=== PATIENT | male | born 1980 | race Caucasian/White ===

== ENCOUNTER 2021-11-22 07:47 | Outpatient (CLI) | payer OTHER, SELFPAY ==
--- NOTE | 2021-11-22 08:00 | ECG_ITS ---
Measurements Intervals [place] Rate: 81 P: 60 [place]: 135 QRS: 40 QRSD: 107 T: 57 QT: 367 QTc: 428 Interpretive Statements SINUS RHYTHM BASELINE ARTIFACT- I, II, III, AVR, AVL, AVF NORMAL ECG Electronically Signed On 11-22-2021 9:59:44 [employer] BACK [employer]ER by Evin Segal D.O.
== END 2021-11-22 07:48 | disposition home or self-care (01) ==
LOC: ANHSURGERY 07:51
PROVIDERS: PCP Nurse Practitioner Adult Health; Visit Provider Surgery
DX: Z01.812 Encounter for preprocedural laboratory examination (principal); E78.5 Hyperlipidemia, unspecified
CPT/HCPCS: 93005

== ENCOUNTER 2021-11-27 00:34 | Day surgery (SDC) | payer OTHER, SELFPAY ==
[2021-11-15 14:43] VITALS: BMI 27.8
--- NOTE | 2021-11-15 15:00 | PC.NURSE ---
Report to the Outpatient Waiting Room, entrance under the green pavilion located off [facility], at time 10:00 on date 11/27/21. OR Time: 12:00. - You and your visitor will be asked a series of questions to screen for COVID 19 for your protection. - A mask is required within the hospital. - Only one visitor is allowed at this time. Patient visitors will be guided where to wait when not with patient. Preoperative COVID Testing Requirements: No COVID Test needed if: (proof is required; if not received patient will have Rapid Test prior to entry) - Patient has received COVID Vaccine at least 14 days prior to procedure date or - Patient has positive COVID test result within last 90 days of surgery date. COVID Test needed if above criteria is not met If not COVID vaccinated a COVID test must be conducted within 72 hours of surgery and patient is asked to isolate self from time of testing until procedure. You will go to the [facility] for your COVID testing. The [facility] is located at the corner of [address] [facility]. You will only be called if COVID results are positive and your surgeon may reschedule your elective surgery date. Patients may have clear liquids (water, carbonated beverages, clear teas, apple juice) until 3 hours prior to surgery with a maximum of 20 ounces. - No food from midnight until time of surgery - Infants may have breast milk until 4 hours before surgery, infant formula 6 hours prior to surgery. - Children will be allowed to drink immediately following surgery. If applicable, please bring a bottle or sippy cup to assist with drinking. Juice, water, soda, and popsicles are readily available. For infants on formula, please bring formula the day of surgery. Pacifiers are allowed. Take the following medications with a SIP of water the morning of surgery: NONE Medications to discontinue per physician: VITAMINS/SUPPLEMENTS Date to take last dose: 11/23/21 Please no make-up, nail ukrainian, hairspray, perfume, deodorant, or body powder the day of surgery. No jewelry (including any body piercings) or valuables the day of surgery, leave them at home. Please take a shower or bath the night before, or the morning of, surgery with an antibacterial soap. Wear comfortable, loose fitting clothing. HIBICLENS SHOWER - Jewelry must be removed prior to entering the operating room. Rings and piercings that are not removed may be cut off. - The hospital will not accept responsibility for valuables. - Please leave all valuables, including medications, at home the day of surgery. If you are going home after surgery, a licensed tank driver must drive you home. - NO public transportation without another adult. - We recommend that an adult stay with you for 24 hours following discharge. - We also recommend that you do not drive, make important decision, drink alcoholic beverages, or take any drugs that were not prescribed by your health care provider for at least 24 hours after your discharge time. For Pediatric surgeries, we recommend two adults accompany the child home (only one inside the building at this time). Follow any additional instructions given to you from your surgeon. Telephone instructions given to MARIANN MILLER and asked if any additional questions and then verbalized understanding. Patient advised to call surgeon office or pre surgery nurse liaison [phone] if any additional questions.
[2021-11-27] VITALS (8 sets, daily range): BP systolic 106–123; BP diastolic 62–88; PULSE 61–97; RESP 12–16; TEMP 36.7–36.8; O2SAT 97–100
[2021-11-27] MEDS: ACETAMINOPHEN 500 MG TABLET 1000 MG PO (07:43)
[2021-11-27] MEDS: KETOROLAC 15 MG/ML VIAL (*BKC) IV PUSH (07:43)
--- NOTE | 2021-11-27 07:52 | WPDANESEPPF ---
Anes - Initial Pre Proc Eval Procedure: Operation Date: 11/27/21 08:30 Proposed Procedures p Umbilical Hernia Repair with Possible Mesh - Javier Powell DO Date/Time: 11/27/21 07:52 Surgeon: Javier Powell DO Pre Op Diagnosis: Umbilical Hernia Patient Data Age: 41 Gender: M Height: 1.8 m Weight: 90.72 kg Last Vital Signs Temp 36.8 C 11/27/21 07:34 Pulse 70 11/27/21 07:34 Resp 16 11/27/21 07:34 BP 123/73 11/27/21 07:34 Pulse Ox 99 11/27/21 07:34 Allergies Allergy/AdvReac Type Severity Reaction Status Date / Time No Known Allergies Allergy Unknown Verified 11/15/21 14:41 Home Medications Medication Instructions Recorded Confirmed Type fenofibrate 160 mg tablet 160 mg PO DAILY 08/23/21 11/15/21 History calcium-vitamins B6-B12-FA 1 tablet PO DAILY 11/15/21 11/15/21 History cholecalciferol (vitamin D3) 25 mcg PO DAILY 11/15/21 11/15/21 History [Vitamin D3] Patient hx anesthesia problems: none Family hx anesthesia problems: none Results Review: All pre-operative results and documents have been reviewed as part of the pre-operative evaluation. [facility] Past Medical History Medical History High cholesterol Surgical History Surgical History History of laparoscopic appendectomy 1988 History of rotator cuff surgery Right shoulder 2014 Family History Family History Sibling Family history of diabetes mellitus in first degree relative Other Diabetes mellitus Family history of cardiovascular disease Family history of lung cancer Family history of throat cancer Social History Social History Smoking packs per day: 2 Smoking cigarettes per day: 40.0 Years smoked: 20 Smoking pack-years: 40.00 Smoking status: Former smoker Tobacco type: cigarettes Smoking end date: 11/24/14 Alcohol intake: current Alcohol use details: 3/MONTH Substance use: never Substance use type: does not use Living arrangements: with family 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 Informed Consent: The patient's anesthetic plan and its attendant risks and benefits were discussed with the patient/family/POA. Questions were solicited and answers provided to the satisfaction of the patient/family/POA.
[2021-11-27] MEDS: LACTATED RINGERS 1,000 ML 30 ML IV CONT ×2 (08:00→09:32)
--- NOTE | 2021-11-27 08:26 | WPDHPUPDATE1 ---
History and Physical Update Update Date/Time: 11/27/21 08:26 History and Physical has been reviewed, including an updated exam of the patient. There are NO changes in the patient's condition. Risks, benefits, and alternatives have been discussed and questions answered. Patient agrees to proceed with procedure.
--- NOTE | 2021-11-27 08:27 | PM.IMHP ---
H&P: HPI History of Present Illness Date/Time: 11/27/21 08:27 Chief Complaint: umbilical hernia Narrative: 41 yo man presents for umbilical hernia repair. He denies any changes since last seen in office. Review of Systems Review of Systems: All systems reviewed & are unremarkable except as noted in HPI and below Constitutional: Constitutional: Denies chills, Denies fever(s), Denies headache(s) and Denies weight loss Eyes: Eyes: Denies change in vision ENT: Denies dizziness, Denies headache(s), Denies neck mass and Denies throat swelling Cardiovascular: Cardiovascular: Denies chest pain, Denies lightheadedness and Denies dyspnea Respiratory: Respiratory: Denies cough, Denies dyspnea and Denies wheezing Gastrointestinal: Gastrointestinal: Denies abdominal pain, Denies change in bowel habits, Denies nausea and Denies vomiting Genitourinary: Genitourinary: Denies hematuria and Denies dysuria Musculoskeletal: Musculoskeletal: Reports as per HPI Integumentary/Breasts: Skin/Breast: Reports as per HPI Neurologic: Denies dizziness and Denies headache(s) Allergic/Immunologic: Allergic/Immunologic: Denies throat swelling and Denies wheezing PMFSH Past Medical History Medical History High cholesterol Surgical History Surgical History History of laparoscopic appendectomy 1988 History of rotator cuff surgery Right shoulder 2015 Family History Family History Sibling Family history of diabetes mellitus in first degree relative Other Diabetes mellitus Family history of cardiovascular disease Family history of lung cancer Family history of throat cancer Social History Social History Smoking packs per day: 2 Smoking cigarettes per day: 40.0 Years smoked: 20 Smoking pack-years: 40.00 Smoking status: Former smoker Tobacco type: cigarettes Smoking end date: 11/24/14 Alcohol intake: current Alcohol use details: 3/MONTH Substance use: never Substance use type: does not use Living arrangements: with family 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 Spiritual care concerns: No Meds Home Medications and Allergies Home Medications Medication Instructions Recorded Confirmed Type fenofibrate 160 mg tablet 160 mg PO DAILY 08/23/21 11/15/21 History calcium-vitamins B6-B12-FA 1 tablet PO DAILY 11/15/21 11/15/21 History cholecalciferol (vitamin D3) 25 mcg PO DAILY 11/15/21 11/15/21 History [Vitamin D3] Allergies Allergy/AdvReac Type Severity Reaction Status Date / Time No Known Allergies Allergy Unknown Verified 11/15/21 14:41 Vital Signs Vital Signs - 24 hr 11/27/21 07:34 Temperature 36.8 C Pulse Rate 70 Respiratory Rate 16 Blood Pressure 123/73 Pulse Oximetry 99 Exam Const: General: no acute distress and alert Orientation/consciousness: patient oriented x3 HENMT: Head: normocephalic and atraumatic Ears: hearing grossly normal bilaterally General nose exam: Normal nares present Mouth: Yes Normal oral and palatal mucosa present Eyes: Periorbital: periorbital findings normal Sclera: sclerae normal EOM: EOMs intact bilaterally Neck: Neck: normal visual inspection, no lymphadenopathy and trachea midline Chest: Chest palpation & inspection: normal inspection of the chest Resp: Effort & Inspection: normal respiratory effort Auscultation: clear to auscultation bilaterally Cardio: Jugular venous distension: no JVD Rate: regular rate Rhythm: regular rhythm Heart sounds: S1 normal heart sound present and S2 normal heart sound present Peripheral pulses: Peripheral pulses 2+ throughout GI: Inspection: normal to inspection GI Palp: Yes Soft to palpation, No Tenderness to palpation present (
[2021-11-27] MEDS: ceFAZolin 2 GM/D5W 50 ML 2 GM/50 ML BAG IVPB (08:34)
[2021-11-27] MEDS: BUPIVACAINE/EPINEPHRINE 0.25% 10 ML VIAL 30 ML INFILTRATE (09:02)
--- NOTE | 2021-11-27 09:30 | P.OP_ITS ---
Procedure Note - Detailed Date of Procedure 11/27/21 Pre-op Diagnosis Ventral periumbilical hernia Post-op Diagnosis same Procedure Performed Open ventral hernia repair with 6.[address] ventral patch Surgeon Javier Powell, DO Anesthesia general and local (0.5% bupivacaine with epinephrine) Indications This is a 41-year-old man who presents with a painful bulge near his umbilicus. This has been present for several months and has become progressively larger. He has pain with physical activity. He was found to have a reducible hernia located near the umbilicus on exam. Discussions were made with the patient about treatment options and decision was made to proceed with ventral hernia repair with possible mesh. Findings Ventral hernia repair was performed. The patient was found to have a 1.5 cm hernia located just superior to the umbilicus. There was not much preperitoneal fat around the hernia, therefore decision was made to place the Ventralex ST mesh intra-abdominally and secure this to the fascia with 0 Ethibond U-stitch trans fascial sutures. No specimens were obtained for pathology. Description of Procedure Procedure as well as risks, benefits, and alternatives were discussed with the patient. Written consent was obtained and placed in chart prior to procedure. Patient was brought back to surgical suite. He was placed supine on operating table. He was then intubated by Anesthesia Department. His abdomen was prepped and draped in sterile fashion using chlorhexidine prep. 0.5% bupivacaine with epinephrine was infiltrated locally around the operative area. A 4 cm cu rvilinear incision was made just superior to the umbilicus using a 15 blade scalpel. Electrocautery was used for hemostasis and for dissection down through the subcutaneous fat. Hernia sac was encountered and this was carefully freed up from surrounding subcutaneous fat using electrocautery. The hernia sac was freed up all the way down to the level of the fascia, and then it was transected using electrocautery. The hernia sac excised and discarded. The umbilical stalk was then lifted off of the fascia with electrocautery. The hernia defect was then measured. This was measuring approximately 15 mm. The decision was made to use a 6.[address] ventral patch. The mesh was placed within the abdominal cavity and was laid out flat with it centered on the hernia defect. The straps of the mesh were then secured to the fascia using 0 Ethibond U-stitch trans fascial sutures at the superior and inferior edges. The straps were then cut just beyond the suture. The fascia of the hernia defect was then reapproximated over the mesh using 0 Ethibond [id number] sutures. The repair was inspected and appeared secure. 0.5% bupivacaine with epinephrine was infiltrated around the fascia and subcutaneous space. The umbilical stalk was then reapproximated to the fascia using a 3 0 Vicryl simple interrupted suture. The deep dermis was reapproximated using 3 0 Vicryl simple interrupted sutures, and then the skin was approximated using 4 Monocryl running subcuticular suture. Exofin glue was then applied on top. The patient was then awakened from anesthesia, extubated, and transferred to recovery. Implants 6.[address] mesh Estimated Blood Loss 5 Complications No immediate complications Condition stable Disposition same day
== END 2021-11-27 11:40 | disposition home or self-care (01) ==
PROVIDERS: PCP Nurse Practitioner Adult Health; Visit Provider Surgery
PROC: (CPT 49560; principal; 2021-11-27 08:30)
DX: K43.9 Ventral hernia without obstruction or gangrene (principal); E78.00 Pure hypercholesterolemia, unspecified; Z87.891 Personal history of nicotine dependence
CPT/HCPCS: 49560; 49568; 93005; A9270; J0690; J1100; J1885; J2250; J2405; J2704; J3010; J7120

== ENCOUNTER 2022-10-08 17:34 | Emergency (ER) | payer OTHER, SELFPAY ==
[2022-10-08] VITALS (16 sets, daily range): BP systolic 105–139; BP diastolic 72–100; PULSE 57–80; RESP 12–23; TEMP 36.8; O2SAT 96–100
--- NOTE | ~2022-10-08 | XR_ITS ---
EXAMINATION: XR chest 2V DATE: 10/08/2022 18:06 INDICATION: Chest pain TECHNIQUE: Frontal and lateral views of the chest are obtained COMPARISON: 02/27/2012 FINDINGS: The lungs are free of acute opacities. No pleural effusion or pneumothorax. The cardiomedia stinal silhouette is normal. The visualized bones and soft tissues are unremarkable. IMPRESSION: 1. No acute cardiopulmonary abnormality. Reviewed, dictated and finalized at location F. ER OPERATOR
--- NOTE | 2022-10-08 17:47 | ECG_ITS ---
Measurements Intervals [place] Rate: 64 P: 52 [place]: 170 QRS: 48 QRSD: 102 T: 60 QT: 393 QTc: 408 Interpretive Statements SINUS RHYTHM BASELINE ARTIFACT- I, II, AVR, AVL NORMAL ECG COMPARED TO ECG 11/22/2021 08:10:36 NO SIGNIFICANT CHANGES Electronically Signed On 10-08-2022 19:54:27 ROOFER by Evin Segal D.O.
[2022-10-08 20:49] LABS: Basophils Absolute Auto 0.1 K/mm3 (0.0-0.1); Basophils Percent Auto 0.7 % (0.2-1.2); Eosinophils Absolute Auto 0.1 K/mm3 (0-0.3); Eosinophils Percent Auto 1.2 % (0-4.4); Hematocrit 42.7 % (42.0-52.0); Hemoglobin 15.1 g/dL (14.0-18.0); Immature Granulocyte Absolute 0.03 K/mm3 (0.00-0.031); Immature Granulocyte Percent A 0.4 % (0-0.5); Lymphocytes Absolute Auto 2.38 K/mm3 (0.9-3.2); Lymphocytes Percent Auto 31.2 % (18.3-44.2); Mean Corpuscular HGB Conc 35.4 g/dl (32-36); Mean Corpuscular Hemoglobin 31.4 pg (26-34); Mean Corpuscular Volume 88.8 fl (80-100); Mean Platelet Volume 10.7 fl (7.4-10.4); Monocytes Absolute Auto 0.6 K/mm3 (0.1-0.6); Monocytes Percent Auto 8.4 % (2.6-8.5); Neutrophils Absolute Auto 4.4 K/mm3 (1.3-6.7); Neutrophils Percent Auto 58.1 % (45.5-73.1); Platelet Count Result 282 k/mm3 (150-375); Red Blood Count 4.81 M/mm3 (4.6-6.20); Red Cell Distribution Width 12.7 % (11.5-14.5); White Blood Count 7.6 K/mm3 (4.5-10.0)
--- NOTE | 2022-10-08 20:56 | ED.GENADULT ---
HPI - General Adult General Chief complaint: Chest Pain Stated complaint: chest pain since yesterday Time Seen by Provider: 10/08/22 20:46 History of Present Illness HPI narrative: Patient 42-year-old gentleman who presents emergency department with chief complaint of chest pain. Patient states that he has been having discomfort since yesterday reports its been pretty well constant but has slightly improved today. Patient states the pain is not worse with inspiration reports that he is had no nausea vomiting Diaphoresis denies radiation to the arm or neck. The patient states he has significant family history for cardiac disease but he personally has no significant past medical history. The patient denies smoking. Related Data Home Medications Medication Instructions Recorded Confirmed fenofibrate 160 mg tablet 160 mg PO DAILY 08/23/21 01/18/22 calcium-vitamins B6-B12-FA tablet 1 tablet PO DAILY 11/15/21 01/18/22 cholecalciferol (vitamin D3) 25 25 mcg PO DAILY 11/15/21 01/18/22 mcg (1,000 unit) tablet (Vitamin D3) Allergies Allergy/AdvReac Type Severity Reaction Status Date / Time No Known Allergies Allergy Unknown Verified 01/15/22 09:00 Review of Systems Review of Systems: A 10 system review of systems was completed on the patient and is negative except for what is stated in the HPI. Nursing and ancillary documentation was reviewed. [facility] Past Medical History Medical History High cholesterol Surgical History Surgical History H/O umbilical hernia repair 11/27/21 History of laparoscopic appendectomy 1988 History of rotator cuff surgery Right shoulder 2014 Family History Family History Sibling Family history of diabetes mellitus in first degree relative Other Diabetes mellitus Family history of cardiovascular disease Family history of lung cancer Family history of throat cancer Social History Social History Smoking packs per day: 2 Smoking cigarettes per day: 40.0 Years smoked: 20 Smoking pack-years: 40.00 Smoking status: Former smoker Tobacco type: cigarettes Smoking end date: 11/24/14 Alcohol intake: current Alcohol use details: 3/MONTH Substance use: never Substance use type: does not use 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 HEAD: Normocephalic, atraumatic. EYES: PERRLA and EOMI. ENT: Nares clear, no rhinorrhea or epistaxis. Mucous membranes moist. NECK: Supple. CHEST: Clear to auscultation. No respiratory distress. HEART: Regular rate and rhythm. No murmur heard. Normal peripheral pulses. ABDOMEN: Soft, nontender, nondistended, normal active bowel sounds. EXTREMITIES: Normal range of motion. No edema. SKIN: Warm, dry, no rash. NEURO: No focal deficits. Alert and oriented x3. PSYCH: Normal mood and affect. Course Course Emergency Course: EKG is sinus rhythm rate of [address] elevation or ST depression Vital Signs Vital signs: Vital Signs Temperature 36.8 C 10/08/22 17:43 Pulse Rate 74 10/08/22 17:43 Respiratory Rate 12 10/08/22 17:43 Blood Pressure 131/87 10/08/22 17:43 Pulse Oximetry 100 10/08/22 17:43 Oxygen Delivery Room Air 10/08/22 17:43 Temperature 36.8 C 10/08/22 17:43 Pulse Rate 59 L 10/09/22 00:27 Respiratory Rate 11 L 10/09/22 00:27 Blood Pressure 116/76 10/09/22 00:27 Pulse Oximetry 100 10/09/22 00:27 Oxygen Delivery Room Air 10/08/22 17:43 Medical Decision Making Vital Signs Vital Signs: Vital Signs Temperature 36.8 C 10/08/22 17:43 Pulse Rate 74 10/08/22 17:43 Respiratory
[2022-10-08 21:00] LABS: INR 1.1; Prothrombin Time 13.8 Seconds (11.1-14.7)
[2022-10-08 21:01] LABS: Partial Thromboplastin Time 29.5 SECONDS (22.3-36.8)
[2022-10-08 21:09] LABS: Alanine Aminotransferase 30 U/L (6-50); Albumin Level 5.1 g/dL (3.5-5.1); Alkaline Phosphatase 69 U/L (38-126); Anion Gap 13 mmol/L (8-16); Aspartate Amino Transferase 27 U/L (17-59); Blood Urea Nitrogen 16 mg/dL (9-20); Calcium 9.7 mg/dL (8.4-10.2); Carbon Dioxide 25 mmol/L (22-30); Chloride 102 mmol/L (98-107); Estimated CRCL calculation 91 ml/min; Estimated Glomerular Filt Rate > 60; Glucose 84 mg/dL (65-110); Lipase 70 U/L (23-300); Potassium 4.2 mmol/L (3.4-5.0); Sodium 140 mmol/L (137-145)
[2022-10-08 21:20] LABS: Troponin I < 0.012 ng/mL (0.000-0.034)
[2022-10-08] MEDS: ASPIRIN 81 MG CHEWABLE TABLET 324 MG PO (21:34)
[2022-10-09] VITALS: PULSE 56; RESP 19; O2SAT 98
[2022-10-09 00:05] LABS: Troponin I < 0.012 ng/mL (0.000-0.034)
[2022-10-09 00:15] VITALS: PULSE 59; RESP 18; O2SAT 97
[2022-10-09 00:27] VITALS: BP 116/76; PULSE 59; RESP 11; O2SAT 100
== END 2022-10-09 00:30 | disposition home or self-care (01) ==
PROVIDERS: Nurse Practitioner Family; Emergency Provider Emergency Medicine
DX: R07.89 Other chest pain (principal); E78.00 Pure hypercholesterolemia, unspecified; Z87.891 Personal history of nicotine dependence
CPT/HCPCS: 36415; 71046; 80053; 83690; 84484; 85025; 85610; 85730; 93005; 99284; A9270

== ENCOUNTER 2023-10-05 10:39 | Emergency (ER) | payer OTHER, SELFPAY ==
--- NOTE | ~2023-10-05 | XR_ITS ---
EXAMINATION: XR foot RT min 3V DATE: 10/05/2023 11:04 INDICATION: Right foot injury. TECHNIQUE: 5 views of right foot were obtained. COMPARISON: None. FINDINGS: Bone alignment is normal. There is a nondisplaced oblique fracture of base of fourth metata rsal. There is mild osteoarthritis of first metatarsophalangeal joint. IMPRESSION: 1. Nondisplaced oblique fracture of base of fourth metatarsal. 2. Mild osteoarthritis of first metatarsophalangeal joint. Reviewed, dictated and finalized at location A. ATION RESEARCH ANALYST
[2023-10-05 10:50] VITALS: BP 144/98; PULSE 75; RESP 16; TEMP 37.2; O2SAT 100
--- NOTE | 2023-10-05 11:36 | ED.GENADULT ---
HPI - General Adult General Chief complaint: Extremity Injury, Lower Stated complaint: Fall Source: patient Mode of arrival: ambulatory Limitations: no limitations History of Present Illness HPI narrative: Patient presents for evaluation of right foot pain. He was walking down a hill in his yard last night when he stepped in a hole. He twisted his right ankle and fell down. He did not hit his head. No LOC. He now reports pain in the right foot. At rest his pain is 2/10 in severity but it increases to 8/10 with weightbearing and movement. He took some ibuprofen which seemed to help. He has tingling in his toes. No numbness. No loss of ROM. Related Data Home Medications Medication Instructions Recorded Confirmed atorvastatin 40 mg tablet mg 10/05/23 10/05/23 Allergies Allergy/AdvReac Type Severity Reaction Status Date / Time No Known Allergies Allergy Unknown Verified 10/05/23 10:50 Review of Systems Review of Systems: CONSTITUTIONAL: Denies fever, chills, or sweats. EYES: Denies visual changes, redness, or discharge. ENT: Denies rhinorrhea, congestion, sore throat, or otalgia. CARDIOVASCULAR: Denies chest pain, palpitations, or edema. RESPIRATORY: Denies cough or dyspnea. GASTROINTESTINAL: Denies abdominal pain, nausea, vomiting, or diarrhea. GENITOURINARY: Denies dysuria or hematuria. SKIN: Denies rash or itching. MUSCULOSKELETAL: Reports right foot pain. Denies loss of ROM. NEUROLOGIC:Reports tingling in right toes. Denies numbness, headache, numbness, dizziness, or weakness. PSYCHIATRIC: Denies anxiety or depression. [facility] Past Medical History Medical History High cholesterol Surgical History Surgical History H/O umbilical hernia repair 11/27/21 History of laparoscopic appendectomy 1988 History of rotator cuff surgery Right shoulder 2015 Family History Family History Sibling Family history of diabetes mellitus in first degree relative Other Diabetes mellitus Family history of cardiovascular disease Family history of lung cancer Family history of throat cancer Social History Social History Smoking packs per day: 2 Smoking cigarettes per day: 40.0 Years smoked: 20 Smoking pack-years: 40.00 Smoking status: Former smoker Tobacco type: cigarettes Smoking end date: 11/24/14 Alcohol intake: current Alcohol use details: 3/MONTH Substance use: never Substance use type: does not use Living arrangements: with family Occupation/Education: occupation 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 HEAD: Normocephalic, atraumatic. EYES: PERRLA and EOMI. ENT: Nares clear, no rhinorrhea or epistaxis. Mucous membranes moist. Oropharynx without tonsillar hypertrophy exudate or other lesions. Bilateral TMs pearly garcia nonbulging NECK: Supple. No adenopathy or masses. No carotid bruits or JVD CHEST: Clear to auscultation. No respiratory distress. No wheezes rales or rhonchi HEART: Regular rate and rhythm. No murmur heard. Normal peripheral pulses. ABDOMEN: Soft, nontender, nondistended, normal active bowel sounds. EXTREMITIES: Normal range of motion. Able to dorsi and plantarflex the right foot. Able to wiggle all digits of the right foot. Tenderness over the plantar aspect of the 4th metatarsal of the right foot. No edema. SKIN: Warm, dry, no rash. NEURO: No focal deficits. Alert and oriented x3. PSYCH: Normal mood and affect. Course Course Emergency Course: This is a 43-year-old male who presented for evaluation of right foot pain. X ray shows fourth metatarsal fr
== END 2023-10-05 11:43 | disposition home or self-care (01) ==
PROVIDERS: Emergency Provider Nurse Practitioner; PCP Physician Assistant
DX: S92.344A Nondisplaced fracture of fourth metatarsal bone, right foot, initial encounter for closed fracture (principal); W17.2XXA Fall into hole, initial encounter; E78.00 Pure hypercholesterolemia, unspecified; Z87.891 Personal history of nicotine dependence
CPT/HCPCS: 29515; 73630; 99214; G0463

== ENCOUNTER 2024-10-29 08:59 | Emergency (ER) | payer OTHER, SELFPAY ==
[2024-10-29 09:09] VITALS: BP 136/85; PULSE 79; RESP 19; TEMP 37.1; O2SAT 100
--- NOTE | 2024-10-29 09:33 | ED_ITS ---
HPI - Skin/Abscess/Foreign Bdy General Chief complaint: Skin/Abscess/Foreign Body Stated complaint: Rash/Wound Check Time Seen by Provider: 10/29/24 09:34 Source: patient, RN notes reviewed and old records reviewed Mode of arrival: ambulatory Limitations: no limitations History of Present Illness HPI narrative: Patient presents with complaints of open sores to the left hand that have been present for a couple of weeks, worsening. He is also concerned about a palpable lump in the left elbow. He denies any injury or trauma. States that he has been cleaning the wounds to the left hand daily and applying antibiotic ointment, but now is having some redness, swelling, drainage. States that he is most concerned because this morning he awakened with a painful lump in the left elbow. He retains full range of motion to the entire left upper extremity. He denies any fever, chills, sweats. He has not been taking anything for his symptoms. He voices no other concerns or complaints at this time. Related Data Home Medications Medication Instructions Recorded Confirmed atorvastatin 40 mg tablet 40 mg PO DAILY 10/05/23 10/29/24 Allergies Allergy/AdvReac Type Severity Reaction Status Date / Time No Known Allergies Allergy Unknown Verified 10/05/23 10:50 Review of Systems Review of Systems: All systems reviewed & are unremarkable except as noted in HPI and below Constitutional: Constitutional: Reports no additional constitutional complaints ENT: Reports system reviewed and no additional complaints, except as documented Cardiovascular: Cardiovascular: Reports no additional cardiovascular complaints Respiratory: Respiratory: Reports no additional respiratory complaints Gastrointestinal: Gastrointestinal: Reports no additional gastrointestinal complaints Integumentary/Breasts: Skin/Breast: Reports system reviewed and no additional complaints, except as docu, Reports as per HPI, Reports swelling, Reports wounds and Reports other PMFSH Past Medical History Medical History High cholesterol Surgical History Surgical History H/O umbilical hernia repair 11/27/21 History of laparoscopic appendectomy 1988 History of rotator cuff surgery Right shoulder 2015 Family History Family History Sibling Family history of diabetes mellitus in first degree relative Other Diabetes mellitus Family history of cardiovascular disease Family history of lung cancer Family history of throat cancer Social History Social History Smoking packs per day: 2 Smoking cigarettes per day: 40.0 Years smoked: 20 Smoking pack-years: 40.00 Smoking status: Former smoker Tobacco type: cigarettes Smoking end date: 11/24/14 Alcohol intake: current Alcohol use details: 3/MONTH Substance use: never Substance use type: does not use Living arrangements: with family Occupation/Education: occupation 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 There is no relevant family history pertinent to the patient complaint. Exam Const: General: cooperative, no acute distress, alert and awake Orientation/consciousness: oriented to person, oriented to place and oriented to time HENMT: Head: normal to inspection Resp: Effort & Inspection: normal respiratory effort and able to speak in complete sentences Auscultation: clear to auscultation bilaterally, no crackles, no rales, no rhonchi and no wheezes Cardio: Palpation: normal PMI Rate: regular rate Rhythm: regular rhythm Heart sounds: S1 normal heart sound present and S2 normal heart sound present Skin: Full body images: 1. 0.5 cm open wound with surrounding area of erythema 2. 0.5 cm open wound with surrounding ar ea of erythema and warmth 3. Hard, tender, pea-sized palpable node Neuro: General: oriented to person, oriented to place and oriented to time Cranial nerves: Yes CN's II-XII intact bilaterally Psych: Appearance: grossly normal Thought process: Normal thought process present Insight: Good insight present (Psych) Judgement: Good judgement present (Psych) Course Course Level of Care: Express Care Visit Vital Signs Vital signs: Vital Signs Temperature 98.7 F 10/29/24 09:09 Pulse Rate 79 10/29/24 09:09 Respiratory Rate 19 10/29/24 09:09 Blood Pressure 136/85 10/29/24 09:09 Pulse Oximetry 100 10/29/24 09:09 Oxygen Delivery Room Air 10/29/24 09:09 Temperature 98.7 F 10/29/24 09:09 Pulse Rate 79 10/29/24 09:09 Respiratory Rate 19 10/29/24 09:09 Blood Pressure 136/85 10/29/24 09:09 Pulse Oximetry 100 10/29/24 09:09 Oxygen Delivery Room Air 10/29/24 09:09 Reviewed MDM - Skin/Abscess/Foreign Bdy MDM Narrative Medical decision making narrative: Left hand with evidence of cellulitis, palpable node, likely reactive. Start doxycycline. Patient is nontoxic appearing, stable for discharge home on p.o. antibiotic therapy. He is advised to follow-up with primary care provider without fail, emergency department for new or worse symptoms. Discharge instructions reviewed with patient, as well as provided in writing per nursing staff. The instructions also include specific and strict return/GO TO THE ER as well as f/u information. All questions have been answered, and the patient deny any further questions with discharge and discharge plan. Some parts of this dictation were generated by voice recognition software and m ay contain typographical and/or grammatical inaccuracies. Differential Diagnosis Differential diagnosis: Likely abscess of skin or subcutaneous tissue and cellulitis Medical Records Attestation: I reviewed the patient's medical records. Discharge Plan Discharge Clinical Impression: Cellulitis Qualifiers: Site of cellulitis: extremity Site of cellulitis of extremity: upper extremity Laterality: left Qualified Code(s): L03.114 - Cellulitis of left upper limb Patient Disposition: Home, Self-Care Condition: Stable Instructions: Antibiotic Form, Cellulitis (ED) Additional Instructions: Take medications as prescribed. Follow-up with primary care provider without fail. Emergency department for any new or worsening symptoms Patient Language: Korean Prescriptions: New doxycycline hyclate 100 mg tablet 100 mg PO BID 10 Days Qty: 20 0RF No Action atorvastatin 40 mg tablet 40 mg PO DAILY Follow-up/Referrals: PHYSICIAN,TAX SERVICES SPECIALIST [Primary Care Provider] - Stand Alone Forms: Work/School Release IP Time of Disposition: 09:49
== END 2024-10-29 10:00 | disposition home or self-care (01) ==
PROVIDERS: Emergency Provider Nurse Practitioner Family
DX: L03.114 Cellulitis of left upper limb (principal); Z87.891 Personal history of nicotine dependence; E78.00 Pure hypercholesterolemia, unspecified
CPT/HCPCS: 99213; G0463